=== PATIENT | male | born 1965 | race Caucasian/White ===

== ENCOUNTER 2024-05-14 10:26 | Day surgery (SDC) | payer OTHER ==
[2024-05-13 11:50] VITALS: BMI 31.2
[2024-05-14 11:06] VITALS: TEMP 97.8
[2024-05-14] MEDS: IV FLUID CONTINUATION 1,000 ML IV ONE (11:06)
[2024-05-14] MEDS: LACTATED RINGERS 1,000 ML IV SCH (11:19)
[2024-05-14 11:26] LABS: Glucose,Whole Blood 204 mg/dL (70-110)
[2024-05-14] MEDS ORDERED: PROPOFOL 10 MG/ML 20 ML VIAL IV ONE (11:54)
--- NOTE | 2024-05-14 12:52 | P.GSHP ---
History of Present Illness H&P Date: 05/14/24 CHIEF COMPLAINT: Colon screen HISTORY OF PRESENT ILLNESS: The patient is a 58-year-old male who presents for colon screen. Lower endoscopy was offered for further evaluation and management. PAST MEDICAL HISTORY: Please see list. PAST SURGICAL HISTORY: Please see list. MEDICATIONS: Please see list. ALLERGIES: Please see list. SOCIAL HISTORY: No illicit drug use FAMILY HISTORY: No reports of Crohn disease or ulcerative colitis. REVIEW OF ORGAN SYSTEMS: CONSTITUTIONAL: No reports of fevers or chills. PHYSICAL EXAM: VITAL SIGNS: Stable GENERAL: Well-developed pleasant in no acute distress. HEENT: No scleral icterus. Extraocular movements grossly intact. Moist buccal mucosa. NECK: Supple without lymphadenopathy. CHEST: Unlabored respirations. Equal bilateral excursions. CARDIOVASCULAR: Regular rate and rhythm. Distal 2+ pulses. ABDOMEN: Soft, nontender, nondistended. MUSCULOSKELETAL: No clubbing, cyanosis, or edema. ASSESSMENT: 1. Colon screen. PLAN: 1. Recommend proceeding with a lower endoscopy Past Medical History Past Medical History: Diabetes Mellitus, Hyperlipidemia Additional Past Medical History / Comment(s): Chronic back pain, History of Any Multi-Drug Resistant Organisms: None Reported Past Surgical History: Back Surgery, Cholecystectomy, Orthopedic Surgery, Tonsillectomy Additional Past Surgical History / Comment(s): arthroscopy right kneex3, left knee x1, Past Anesthesia/Blood Transfusion Reactions: No Reported Reaction Smoking Status: Former smoker - Past Family History Mother Family Medical History: No Reported History Medications and Allergies Home Medications Medication Instructions Recorded Confirmed Type Eveleth-3 Fatty Acids [Eveleth-3] 1 tab PO DAILY 08/16/17 05/14/24 History Empagliflozin [Jardiance] 25 mg PO DAILY 05/13/24 05/14/24 History Loratadine 10 mg PO DAILY 05/13/24 05/14/24 History Naproxen Sodium [Aleve] 220 mg PO DAILY 05/13/24 05/14/24 History Turmeric Root Extract [Turmeric] 1,053 mg PO DAILY 05/13/24 05/14/24 History Turmeric Root Extract [Turmeric] 500 mg PO HS 05/13/24 05/14/24 History Allergies Allergy/AdvReac Type Severity Reaction Status Date / Time No Known Allergies Allergy Verified 05/14/24 10:55 Surgical - Exam Vital Signs Temp Pulse Resp BP Pulse Ox 97.8 F 84 18 147/79 97 05/14/24 11:04 05/14/24 11:04 05/14/24 11:04 05/14/24 11:04 05/14/24 11:04 Results - Labs Abnormal Lab Results - Last 24 Hours (Table) 05/14/24 Range/Units 11:15 POC Glucose (mg/dL) 204 H (70-110) mg/dL
[2024-05-14 13:01] VITALS: RESP 16
[2024-05-14 13:23] VITALS: BP 113/67; PULSE 78
--- NOTE | 2024-05-14 22:13 | P.PCN ---
Date of Procedure: 05/14/24 Description of Procedure: PREOPERATIVE DIAGNOSIS: Colonoscopy screening. POSTOPERATIVE DIAGNOSIS: Colonoscopy screening. Diverticulosis, scattered. Transverse colon polyp OPERATION: Colonoscopy to the cecum, ileocecal valve and appendiceal orifice. SURGEON: Daphnie Gallego MD. ANESTHESIA: MAC. INDICATIONS: The patient is a 58-year-old male who presents for first colonoscopy screening. Benefits and risks were described and informed consent was obtained. DESCRIPTION OF PROCEDURE: The patient had undergone GoLytely prep. The patient had been brought into the operating room and laid in the left lateral decubitus position. After adequate intravenous sedation, the rectum was examined with 2% lidocaine jelly. External hemorrhoids were encountered. Prostate unremarkable. The rectal tone was within normal limits. No lesions were palpated in the rectal vault. An Olympus colonoscope was advanced until the cecum, ileocecal valve and appendiceal orifice were clearly viewed. The prep was good. Scattered diverticulosis was encountered. Colonic polyps were found and unable to retreive due to bro nchospasms prohibiting resection of polyp under safe conditions. No evidence of focal colitis was found. Retroflexion of the scope demonstrated grade 2 internal hemorrhoids without active bleeding or inflammation. The colon was desufflated. The patient had tolerated the procedure well. Withdrawal time was over 6 minutes. FINDINGS: Aronchick preparation quality scale (1-5) Internal hemorrhoids, grade 2 External prolapsed hemorrhoids, grade 2 No arteriovenous malformations. Transverse colon polyp, 3 mm, unable to retrieve due to acute bronchospasms prohibiting safe removal for polypectomy No focal colitis. RECOMMENDATIONS: Lower endoscopy 3 years 2026 Recommend upper endoscopy for occult gastroesophageal reflux disease exacerbating bronchospasm Plan - Discharge Summary Discharge Rx Participant: No New Discharge Prescriptions: Continue Liberty-3 Fatty Acids [Liberty-3] 1 tab PO DAILY Turmeric Root Extract [Turmeric] 1,053 mg PO DAILY Empagliflozin [Jardiance] 25 mg PO DAILY Turmeric Root Extract [Turmeric] 500 mg PO HS Naproxen Sodium [Aleve] 220 mg PO DAILY Loratadine 10 mg PO DAILY Discharge Medication List Liberty-3 Fatty Acids [Liberty-3] 1 tab PO DAILY 08/16/17 [History] Empagliflozin [Jardiance] 25 mg PO DAILY 05/13/24 [History] Loratadine 10 mg PO DAILY 05/13/24 [History] Naproxen Sodium [Aleve] 220 mg PO DAILY 05/13/24 [History] Turmeric Root Extract [Turmeric] 1,053 mg PO DAILY 05/13/24 [History] Turmeric Root Extract [Turmeric] 500 mg PO HS 05/13/24 [History] Follow up Appointment(s)/Referral(s): Daphnie Gallego MD [STAFF PHYSICIAN] - 06/10/24 3:15 pm Patient Instructions/Handouts: *Surgery [facility] - (Anesthesia) Discharge Instructions Outpatient Surgery, Diverticulosis (DC), GERD (Gastroesophageal Reflux Disease) (GEN), Colorectal Polyps (GEN), Diverticulosis Diet (GEN) Activity/Diet/Wound Care/Special Instructions: Repeat colonoscopy 3 years, 2026 Discharge Disposition: HOME SELF-CARE
== END 2024-05-14 13:24 | disposition home or self-care (01) ==
LOC: ORWHC2ENDO 10:26
PROVIDERS: ATTEND Surgery Plastic and Reconstructive Surgery
DX: Z12.11 Encounter for screening for malignant neoplasm of colon (principal); K63.5 Polyp of colon; K64.1 Second degree hemorrhoids; K57.30 Diverticulosis of large intestine without perforation or abscess without bleeding; K64.4 Residual hemorrhoidal skin tags; J98.01 Acute bronchospasm; E11.9 Type 2 diabetes mellitus without complications; E78.5 Hyperlipidemia, unspecified; M54.9 Dorsalgia, unspecified; G89.29 Other chronic pain; F12.90 Cannabis use, unspecified, uncomplicated; Z79.899 Other long term (current) drug therapy; Z79.84 Long term (current) use of oral hypoglycemic drugs; Z90.49 Acquired absence of other specified parts of digestive tract; Z98.890 Other specified postprocedural states; Z90.89 Acquired absence of other organs; Z87.891 Personal history of nicotine dependence
CPT/HCPCS: 45378; J2704